=== PATIENT | female | born 1965 | race Caucasian/White ===

== ENCOUNTER 2024-05-26 10:58 | Emergency (ER) | payer BC, SELFPAY ==
[2024-05-26 11:04] VITALS: BP 145/87
[2024-05-26 11:41] LABS: % Basophils 0.4 % (0-2); % Immature Granulocytes 0.2 % (0-0.5); % Lymphocytes 28.6 % (20.5-51.1); % Monocytes 7.9 % (1.7-9.3); % Neutrophils 61.9 % (42.2-75.2); Absolute Eosinophils 0.1 10^3/uL (0-0.7); Absolute Lymphocytes 2.8 10^3/uL (1.2-3.4); Absolute Monocytes 0.8 10^3/uL (0.1-0.6); Hematocrit 44.2 % (37.0-47.0); Mean Corp Hgb Conc. 33.9 g/dL (33.0-37.0); Mean Corpuscular Hgb 29.1 pg (27.0-31.0); Mean Corpuscular Volume 85.7 fL (81.0-99.0); Mean Platelet Volume 9.8 fL (7.4-10.4); Nucleated Red Blood Cells % 0 %; Platelet Count 299 10^3/uL (130-400); Red Blood Cell Count 5.16 10^6/uL (4.20-5.40); White Blood Cell Count 9.7 10^3/uL (4.8-10.8)
[2024-05-26 11:50] LABS: Urine Albumin Negative (Neg - Trace); Urine Bilirubin Negative (Negative); Urine Character Clear (Clear); Urine Color Yellow; Urine Glucose Negative (Negative); Urine Ketone Negative (Negative); Urine Leukocyte Negative (Negative); Urine Nitrite Negative (Negative); Urine Occult Blood Negative (Negative); Urine Urobilinogen Negative (Neg - 1+); Urine pH 6.5 (5.0-9.0)
[2024-05-26 11:51] LABS: ALT (SGPT) 25 U/L (0-35); AST (SGOT) 22 U/L (14-36); Albumin 4.9 g/dl (3.5-5.0); Alkaline Phosphatase 123 U/L (38-126); Blood Urea Nitrogen 9 mg/dl (7-17); Calcium 9.5 mg/dl (8.4-10.2); Carbon Dioxide 25 mmol/L (22-30); Chloride 104 mmol/L (98-107); Glucose 94 mg/dl (70-99); Potassium 4.3 mmol/L (3.5-5.1); Sodium 138 mmol/L (135-145); Total Bilirubin 1.1 mg/dl (0.2-1.3); Total Protein 7.7 g/dl (6.3-8.2); eGFR > 60.00
--- NOTE | 2024-05-26 13:07 | ED.GENMED ---
History of Present Illness
General
Chief Complaint: Back Pain
Source: patient
Exam Limitations: none
Time Seen by Provider: 05/26/24 11:53
Nursing documentation reviewed up to this point in time: agreed with
History of Present Illness
History of Present Illness:
pt is a 58 y/o F with h/o moderate persistent asthma
managed by pulmonary dr. linda dahl
here with wheezing, cough and fever x 2 days
pt is on biologic for crohns and asthma
the crohns is new diagnosis
pt had flu A positive at on 05/09
on 05/14 she had CXR showing pna (it was done at but i can see it int he system)
she started doxycycline, steroids, nebs
she says she had reaction to the doxy and had diarrhea and nausea
her idea worker d/c'd the doxy and switched to clarithromycin on 05/17 and she took 7 days of that
other than fatigue, pt wa doing well until 2 day ago when she got a new fever t max 100.5, more coughing, more wheezing/spastic cough
she called her idea worker who told her to come here
she has not had any diarrhea the past 2 days, chest pain
she does feel sob
she has never been intubated or on bipap for asthma
Past History
Past History
ED Past Medical History: Asthma, GERD and Other (crohn's, Intersitital cystitis)
Social History
Tobacco: Non-smoker
Alcohol: None
Review of Systems
Review of Systems
Allergies reviewed?: Yes
All Other Systems: Not applicable
Phy Exam
Physical Exam
Physical Exam:
GENERAL: Alert , in no apparent distress
EYE: pupils equal and reactive
NECK: Supple
ENT: o/p clr, mmm.
CARDIAC: Regular rate and rhythm .
LUNGS: Very spastic wheezing sounding cough, coughing frequently, moving decent air, no obvious rales
ABDOMEN: Soft, without focal tenderness, no r/g, no cvat, normal bowel sounds
Back nontender, no rash
NEUROLOGICAL: Alert and oriented, no focal neuro deficits
SKIN: Warm and dry, skin intact.
MUSCULOSKELETAL: No edema, well perfused. neg jocelyne's sign
PSYCH: Normal and appropriate interaction.
Course
Orders/Labs/Results
Orders:
Orders
05/26/24 11:16
Electrocardiogram (*1) Urgent
Reason for Study: Chest Pain
EKG- Treatment ONCE
05/26/24 11:31
Complete Blood Count/With Diff Urgent
Comprehensive Metabolic Panel Urgent
Urinalysis Reflex To Culture Urgent
Date Specimen was Collected: 05/26/24
Time Specimen was Collected: 11:16
05/26/24 12:39
Ipratropium/Albuterol Sulfate [Duoneb] 3 ml INH R NOW STA
MethylPREDNISolone PF [Solu-Medrol Pf] 125 mg IV NOW STA
05/26/24 13:40
Ipratropium/Albuterol Sulfate [Duoneb] 3 ml INH R NOW STA
05/26/24 13:46
COVID-19 Antigen Urgent
Source: Nasal Swab
Influenza A+B Rapid Molecular Urgent
ANASTASIA Source: Nasal Swab
Specimen Description:
05/26/24 14:00
D-Dimer Urgent
05/26/24 14:44
CT Chest PE Study Urgent
Comment:
Reason For Exam: eval for pe, new fever, cough, asthma
05/26/24 15:12
Acetaminophen [Tylenol] 1,000 mg PO NOW STA
05/26/24 16:25
Troponin I Urgent
Abnormal Lab Results
05/26/24 05/26/24
11:31 14:00
Absolute Monos (auto) 0.8 H 10^3/uL
(0.1-0.6)
D-Dimer 0.94 H ug/mlFEU
(0.00-0.50)
05/26/24 11:31
05/26/24 11:31
Vital Signs
Initial and Last Documented VS:
Initial Vital Signs
Temp Pulse Resp BP Pulse Ox
36.8 C 101 24 145/87 96
05/26/24 11:04 05/26/24 11:04 05/26/24 11:04 05/26/24 11:04 05/26/24 11:04
Last Documented Vital Signs
Temp Pulse Resp BP Pulse Ox
36.8 C 115 24 149/90 96
05/26/24 11:04 05/26/24 15:15 05/26/24 15:15 05/26/24 15:00 05/26/24 16:00
MDM/Problems Addressed
Differential Diagnosis Includes:
Asthma, asthmatic bronchitis, PE
MDM/Problems Addressed:
58-year-old female with a history of bilateral persistent asthma on a biologic, Crohn's disease, thus immunocompromised presents for worsening cough, wheezing, fevers the past 2 days. Patient was flu a +12 days ago. She ended up being covered with
antibiotics after suspicious chest x-ray may have shown pneumonia though the radiology report was negative. Patient took Doxy first and then was switched to clarithromycin by her idea worker. She completed the course as well as a course of
steroids, 40 for 2 days, 30 for 2 days etc. and says she was feeling okay except her energy level was not totally back to normal when she started getting a new cough, wheezing and fevers with Tmax of 100.5. Patient has also had some left-sided back
discomfort which is coming and going without radiation. Initially to me she denied chest pain but in triage said she had right-sided chest pain and increased fatigue over the last 2 days. On exam she was having conversational dyspnea with very
frequent coughing. Patient could not take a deep breath without having a spastic cough. She otherwise was moving decent air and not having any focal rales. Patient seems significantly improved after 2 DuoNeb's where she was moving much more air
and was not frequently coughing. Patient's pulse ox remained normal 96%. She is mildly tachycardic which she says she has a history of and that is why she takes verapamil. However I did a D-dimer which was elevated at that she had a CT PE study.
I went over the findings with the patient which are mostly incidental. She has a lingular area of atelectasis versus scarring, thyroid nodule that needs follow-up, and coronary artery calcifications. Her EKG is normal sinus rhythm with nonspecific
ST abnormality with some scooping of her ST segment. Initially I did not believe she was having any chest discomfort but after reviewing the chart and the triage note and talking over with the patient she says she did have some chest pain. So I
will order a troponin especially since she has coronary artery calcifications on CT. Her wheezing significantly improved and I believe she can be discharged. I reached out to her idea worker Dr. Mckeon but have not heard a call back. I will plan
on a longer taper of steroids
i did speak with dr. mckeon who liked the discharge plan of pred taper.
trop neg
d/c home
*Critical Care Note
Total Time (30-74mins, 75-104mins- exclusive of procedures): Not Applicable
ED Attending Note
-
Portions of this chart may have been created with voice recognition software.� Occasional wrong word or��sound alike� substitutions may have occurred due to the inherent limitations of voice recognition software.
Discharge Plan
Departure
Patient Disposition: Home (Routine Discharge)
Date of Disposition: 05/26/24
Time of Disposition: 17:13
Patient with high blood pressure during this ER visit?: Yes
Discharge Problem:
Asthmatic bronchitis
Instructions: Bronchitis in adults - ED discharge instructions, Asthma in adults - ED discharge instructions
Prescriptions:
New
prednisone 10 mg Tablet
See Rx Instructions .ROUTE .COMPLEX Qty: 30 0RF
Rx Instructions:
Take By Mouth:
40 mg daily x3 days, 30 mg daily x3 days,
20 mg daily x3 days, 10 mg daily x3 days.
Referrals:
Scott Monet MD [Family Provider] - Follow up in 2-3 days
Activity Restrictions/Additional Instructions:
I attempted to reach out to Dr. Mckeon regarding treatment plan for you. For now try prednisone once a day tapering yourself down from 40 mg X 3 DAYS THEN 30 MG X 3 DAYS THEN 20 MG X 3 DAYS, THEN 10 MG X 3 DAYS.
Continue your neb treatments as planned. Take Tylenol for fevers and pain. You should follow-up with a supervisor cytogenetic laboratory regarding your incidental finding of your coronary artery calcifications. You should also follow-up with your family doctor
regarding your thyroid nodule that was also noticed on CT scan. Return for worsening symptoms like shortness of breath, low oxygen level, significant wheezing not responding to your nebulizer treatments or any concern
Interventions
Interventions:
*Risk Screen - Suicide Last Done: 05/26/24 11:06
*General Assessment Last Done: 05/26/24 11:06
*Neglect/Abuse Screening Last Done: 05/26/24 11:06
ED- Fall Risk Assessment Last Done: 05/26/24 15:19
*ED COVID-19 Vaccine History Last Done: 05/26/24 11:06
*Nursing Disposition Last Done: 05/26/24 17:20
ED-Musculoskeletal Assessment Last Done: 05/26/24 14:24
Discharge Date and Time
Discharge Date/Time: 05/26/24 17:20
Print Language: GABONESE
[2024-05-26] MEDS: DUONEB 3 ML INH ×2 (13:32→14:18)
[2024-05-26] MEDS: SOLU-MEDROL PF 125 MG IV (14:11)
[2024-05-26 14:21] LABS: COVID-19 Antigen Negative (Negative)
[2024-05-26 14:22] VITALS: BMI 37.3
[2024-05-26 14:35] LABS: D-Dimer 0.94 ug/mlFEU (0.00-0.50)
[2024-05-26 15:00] VITALS: BP 149/90
[2024-05-26] MEDS: TYLENOL 1000 MG PO (15:14)
[2024-05-26 17:02] LABS: Troponin I < 0.012 ng/ml
== END 2024-05-26 17:20 | disposition home or self-care (01) ==
LOC: EMR 10:58
PROVIDERS: Emergency Medicine; Physician Assistant; EMERGENCY PHYSICIAN Emergency Medicine; FAMILY PHYSICIAN Family Medicine
DX: J45.40 Moderate persistent asthma, uncomplicated (principal); K21.9 Gastro-esophageal reflux disease without esophagitis; E04.1 Nontoxic single thyroid nodule; K50.90 Crohn's disease, unspecified, without complications; Z11.52 Encounter for screening for COVID-19; I25.10 Atherosclerotic heart disease of native coronary artery without angina pectoris
CPT/HCPCS: 94640; 96374; 99284; 71275; 80053; 81003; 84484; 85025; 85379; 87502; 87811; 93005; Q9967

== ENCOUNTER → 2024-07-21 09:57 | Outpatient (REF) | payer BC, SELFPAY | LOC: WDC 09:57 | PROVIDERS: ATTENDING PHYSICIAN Family Medicine | DX: R92.8 Other abnormal and inconclusive findings on diagnostic imaging of breast (principal) | CPT/HCPCS: 76642; 77061; 77065 ==

== ENCOUNTER → 2025-01-18 09:00 | Outpatient (REF) | payer BC, SELFPAY | LOC: WDC 09:00 | PROVIDERS: ATTENDING PHYSICIAN Family Medicine; REFERRING PHYSICIAN Internal Medicine Pulmonary Disease | DX: N60.01 Solitary cyst of right breast (principal); R92.8 Other abnormal and inconclusive findings on diagnostic imaging of breast | CPT/HCPCS: 76642; 77061; 77065 ==

== ENCOUNTER 2025-02-09 14:22 | Inpatient (IN) | payer BC, SELFPAY ==
[2025-02-09] VITALS (9 sets, daily range): BP systolic 100–148; BP diastolic 46–103; BMI 38.3; BMI 37.4
[2025-02-09] MEDS: TESSALON PERLES 200 MG PO (11:03)
[2025-02-09] MEDS: NSS 500 IV (11:05)
[2025-02-09] MEDS: PROTONIX IV 40 MG IV (11:05)
[2025-02-09] MEDS: DECADRON 6 MG IV (11:07)
[2025-02-09] MEDS: DUONEB 3 ML INH ×3 (11:08→19:25)
--- NOTE | 2025-02-09 11:17 | ED.GENMED ---
History of Present Illness
General
Chief Complaint: Breathing Problem
Source: patient
Exam Limitations: none
Time Seen by Provider: 02/09/25 10:32
Nursing documentation reviewed up to this point in time: agreed with
History of Present Illness
History of Present Illness:
Patient with history of asthma, presents to ED secondary to 2-week history of persistent cough, shortness of breath, along with decreased appetite. Patient has been evaluated by her space control agent and has been started on tapered dose of prednisone
along with cough medication, without improvement symptoms. Denies fever or chills. Denies chest pain. Denies vomiting or diarrhea. Denies headache. Denies dizziness. Denies rash. Denies recent travel or surgery. Denies leg pain or swelling.
Denies sick contact. Patient has been utilizing nebulizer treatment at home, along with Pulmicort, without improvement.
Past History
Past History
ED Past Medical History: Asthma, GERD and Other (crohn's, Intersitital cystitis)
Social History
Tobacco: Non-smoker
Alcohol: None
Review of Systems
Review of Systems
Allergies reviewed?: Yes
All Other Systems: ROS reviewed and negative except as documented in HPI and ROS
Constitutional: Reports no symptoms; Denies fever
Respiratory: Reports cough and trouble breathing
Cardiac: Reports no symptoms
ABD/GI: Reports no symptoms; Denies vomiting or diarrhea
Musculoskeletal: Reports no symptoms
Skin: Reports no symptoms
Neurological: Reports no symptoms
Phy Exam
Physical Exam
Physical Exam:
Physical Exam
General: moderate respiratory distress, not acutely ill. afebrile
Head: nc/at. eomi
Neck: supple. normal range of motion
Heart: s1/s2 regular rate and rhythm
Lungs: moderate respiratory distress. diminished breath sounds bilaterally
Abdomen: normal bowel sounds. not tender.
Neuro: alert and oriented x 3. no focal neurological deficits
Skin: no rash
Psychiatric: well kept. interactive and cooperative
Extremities: no edema. no calf tenderness.
Scores
Heart Failure Risk
Heart Failure Risk Score: Not Applicable
Course
Orders/Labs/Results
Orders:
Orders
02/09/25 10:40
0.9% Sodium Chloride 500 ml [Nss] 500 ml IV BOLUS
Benzonatate [Tessalon Perles] 200 mg PO NOW STA
Dexamethasone Sod Phosphate [Decadron] 6 mg IV NOW STA
Ipratropium/Albuterol Sulfate [Duoneb] 3 ml INH R NOW ONE
CR Chest - 2 Views Urgent
Comment:
Reason For Exam: cough/sob
02/09/25 10:41
Pantoprazole [Protonix IV] 40 mg IV NOW STA
02/09/25 11:09
Comprehensive Metabolic Panel Urgent
D-Dimer Urgent
Magnesium Urgent
02/09/25 11:10
COVID-19 Antigen Urgent
Source: Nasal Swab
Complete Blood Count/With Diff Urgent
Respiratory Syncytial Virus Urgent
ANASTASIA Source: Nasal Swab
Specimen Description:
Date Specimen was Collected: 02/09/25
Time Specimen was Collected: 10:41
02/09/25 12:57
Azithromycin 500 mg/250 ml [Zithromax Infusion] 500 mg in 250 ml IV NOW
02/09/25 13:44
Admit/Transfer Patient As Directed
Co-Sign Provider:
Level of Care: Inpatient admission
Assign to:: Telemetry
Physician / Group: ab
Diagnosis: acute asthma exacerbation
Reason for Telemetry: Arrhythmia
Date to Stop Telemetry: 02/12/25
Time to Stop Telemetry: 11:00
Reason for Hospitalization: acute asthma exacerbation
Expected length of stay greater than two midnights?: Yes
ELOS- Estimated Length of Stay in days: 2
I certify the patient meets the requirements for IP care: Yes
Code Status As Directed
Resuscitation Status: Full Code
PRN Pain Medication Management As Directed
May give lesser potent ordered pain med per pt: Yes
preference::
Protocol:: Medication orders for pain may be administered in a
manner that supports deferring to patient preference
when the pt is:
- Requesting an ordered lesser potent pain medication.
Least to most potent pain medications are defined
as: acetaminophen < NSAID < tramadol < opioids
(morphine, oxycodone, hydromorphone).
- Requesting a lesser dose of the same medication IF
ORDERED.
- Requesting a less intrusive route of administration
if both routes are prescribed by the provider (PO <
IV).
02/12/25 11:00
DC Protocol for Telemetry ONCE
Abnormal Lab Results
02/09/25 02/09/25
11:09 11:10
WBC 12.5 H 10^3/uL
(4.8-10.8)
Abs Immat Gran (auto) 0.1 H 10^3/uL
(0-0.05)
Absolute Neuts (auto) 7.3 H 10^3/uL
(1.4-6.5)
Absolute Lymphs (auto) 4.0 H 10^3/uL
(1.2-3.4)
Absolute Monos (auto) 1.0 H 10^3/uL
(0.1-0.6)
Immature Gran % 1.0 H %
(0-0.5)
D-Dimer 0.87 H ug/mlFEU
(0.00-0.50)
ALT 68 H U/L
(0-35)
02/09/25 11:10
02/09/25 11:09
Vital Signs
Initial and Last Documented VS:
Initial Vital Signs
Temp Pulse Resp BP Pulse Ox
98.3 F 95 18 148/91 97
02/09/25 09:48 02/09/25 09:48 02/09/25 09:48 02/09/25 09:48 02/09/25 09:48
Last Documented Vital Signs
Temp Pulse Resp BP Pulse Ox
98.3 F 91 21 100/62 94
02/09/25 09:48 02/09/25 14:30 02/09/25 14:30 02/09/25 13:00 02/09/25 14:30
MDM/Problems Addressed
MDM/Problems Addressed:
Chest x-ray report reviewed.
History and exam consistent with likely acute bronchitis, failing outpatient therapy. As such, patient will be admitted for further evaluation and treatment, including continue nebulizer treatment, IV steroids, along with Zithromax
*Pulse Oximetry
SaO2: 97
Oxygen Mode of Delivery: Room air
Patient hypoxic: no
*Critical Care Note
Total Time (30-74mins, 75-104mins- exclusive of procedures): Not Applicable
ED Attending Note
-
Portions of this chart may have been created with voice recognition software.� Occasional wrong word or��sound alike� substitutions may have occurred due to the inherent limitations of voice recognition software.
Discharge Plan
Departure
Patient Disposition: Admit
Date of Disposition: 02/09/25
Time of Disposition: 12:58
Admit to: Telemetry
Presentation/result/management discussed w/ accepting MD/DO: Hospitalist
Discharge Problem:
Acute bronchitis, Respiratory distress
Interventions
Interventions:
*Risk Screen - Suicide Last Done: 02/09/25 09:48
*General Assessment Last Done: 02/09/25 09:48
*Neglect/Abuse Screening Last Done: 02/09/25 10:50
*ED- Fall Risk Assessment Last Done: 02/09/25 10:50
*ED COVID-19 Vaccine History Last Done: 02/09/25 10:50
*ED Influenza Vaccine History Last Done: 02/09/25 10:50
ED- Cardiac Assessment Last Done: 02/09/25 14:35
ED- Pulmonary Assessment Last Done: 02/09/25 14:35
[2025-02-09 11:28] LABS: Hematocrit 42.3 % (37.0-47.0); Hemoglobin 14.6 g/dL (12.0-16.0); Mean Corp Hgb Conc. 34.5 g/dL (33.0-37.0); Mean Corpuscular Volume 85.3 fL (81.0-99.0); Nucleated Red Blood Cells % 0 %; Platelet Count 312 10^3/uL (130-400); Red Cell Dist. Width 12.8 % (11.5-14.5)
[2025-02-09 11:44] LABS: ALT (SGPT) 68 U/L (0-35); AST (SGOT) 27 U/L (14-36); Albumin 4.4 g/dl (3.5-5.0); Alkaline Phosphatase 104 U/L (38-126); Blood Urea Nitrogen 12 mg/dl (7-17); Calcium 9.6 mg/dl (8.4-10.2); Carbon Dioxide 28 mmol/L (22-30); Chloride 103 mmol/L (98-107); Estimated Creatinine Clearance 94 ml/min; Glucose 98 mg/dl (70-99); Magnesium 2.1 mg/dl (1.6-2.3); Potassium 4.2 mmol/L (3.5-5.1); Sodium 139 mmol/L (135-145); Total Protein 7.0 g/dl (6.3-8.2); eGFR > 60.00
[2025-02-09 11:48] LABS: COVID-19 Antigen Negative (Negative)
[2025-02-09 12:03] LABS: D-Dimer 0.87 ug/mlFEU (0.00-0.50)
[2025-02-09] MEDS: ZITHROMAX INFUSION 250 IV (13:35)
--- NOTE | 2025-02-09 13:47 | HPS.HSE ---
Family Physician
-
Family Physician: Scott Monet MD
Chief Complaint
-
shortness of breath
History of Present Illness
59-year-old female past medical history of moderate to severe asthma, tachycardia from chronic steroid use, GERD, Crohn's disease, GERD/hiatal hernia, interstitial cystitis, presenting with 2 weeks of persistent cough, shortness of breath, sore
throat, and decreased appetite. She saw her grain thresher and was started on prednisone taper twice without improvement of symptoms. She tested herself for COVID and flu and was negative at home but was also treated empirically with Tamiflu by her
grain thresher which she completed. She had dry heaving last week but this is improved. Denies vomiting or diarrhea. She has burning in the chest from difficulty breathing. Denies fevers or chills. Denies sick contacts.
Denies leg swelling.
She never smoked. Denies alcohol.
Medical History
Past Medical History
Past Medical History: Reports Other (asthma, tachycardia from chronic steroid use, GERD, Crohn's disease, GERD/hiatal hernia, interstitial cystitis,)
Past Surgical History: Reports None
Social History
Tobacco: Non-smoker
Alcohol: None
Drug: None
Family History
Family History: Not pertinent
Allergies / Home Medications
Allergies reflects when Allergies were last updated in [facility].
Home Medications with original date entered in [facility]
Allergy/Medication List:
Allergies
Allergy/AdvReac Type Severity Reaction Status Date / Time
doxylamine Allergy Intermediate Nausea / Verified 02/09/25 09:49
Vomiting
lorazepam (From Ativan) Allergy Intermediate Unknown Verified 02/09/25 09:49
adhesive tape Allergy Rash Verified 02/09/25 09:49
codeine Allergy Unknown Verified 02/09/25 09:49
doxycycline Allergy Unknown Verified 02/09/25 09:49
Latex, Natural Rubber Allergy Unknown Verified 02/09/25 09:49
Penicillins Allergy Unknown Verified 02/09/25 09:49
'most narcotics' Allergy Unknown Uncoded 02/09/25 09:49
Home Medications
prednisone 10 mg tablet See Rx Instructions .Route .COMPLEX #30 tabs 05/26/24
albuterol sulfate 90 mcg/actuation aerosol inhaler 2 puff inhalation R Q6HPRN PRN sob 02/09/25
budesonide 0.5 mg/2 mL suspension for nebulization 0.5 mg inhalation R TID sob 02/09/25
cholecalciferol (vitamin D3) 25 mcg (1,000 unit) tablet (Vitamin D3) 25 mcg PO DAILY Supplement 02/09/25
famotidine 20 mg tablet (Pepcid) 20 mg PO BID Gastrointestinal Issue 02/09/25
fluticasone fur. 200 mcg-umeclid 62.5 mcg-vilant 25 mcg inhalat.powder (Trelegy Ellipta) 1 inh inhalation R DAILY sob 02/09/25
rosuvastatin 10 mg tablet (Crestor) 10 mg PO DAILY High Cholesterol 02/09/25
therapeutic multivitamin 1 tab PO DAILY Supplement 02/09/25
turmeric 400 mg capsule 400 mg PO DAILY Supplement 02/09/25
verapamil 180 mg tablet,extended release 180 mg PO DAILY Blood Pressure 02/09/25
Review of Systems
-
History Source: Patient
A 12 point ROS was completed and negative except as noted: Yes
Constitutional: Reports No Symptoms
EENT: Reports No Symptoms
Respiratory: Reports See HPI
Cardiac: Reports No Symptoms
Abdomen/GI: Reports No Symptoms
: Reports No Symptoms
Musculoskeletal: Reports No Symptoms
Skin: Reports No Symptoms
Neurological: Reports No Symptoms
Endocrine: Reports No Symptoms
Hematologic/Lymphatic: Reports No Symptoms
Psych: Reports No Symptoms
Physical Exam
Vital Signs
Vital Signs
Temp Pulse Resp BP Pulse Ox
98.3 F 95 15 148/91 97
02/09/25 09:48 02/09/25 12:00 02/09/25 12:00 02/09/25 09:48 02/09/25 12:00
Physical Exam
General: Well Developed, Well Nourished and No Apparent Distress
HEENT: NormoCephalic, Moist mucous membranes and Atraumatic
Respiratory: Other (decrease air entry )
Cardiac: S1/S2 and Regular Rhythm; No Murmur or Rub
GI: Soft, Non Tender, Non Distended and Normal Bowel Sounds; No Organomegaly
Rectal: Deferred by Provider
Musculoskeletal: No Clubbing, No Cyanosis and No Edema
Skin: No Rash
Neuro: Nonfocal/grossly intact
Laboratory Results
-
02/09/25 11:10
02/09/25 11:09
Laboratory Results
Total Bilirubin 0.6 mg/dl (0.2-1.3) 02/09/25 11:09
AST 27 U/L (14-36) 02/09/25 11:09
ALT 68 U/L (0-35) H 02/09/25 11:09
Alkaline Phosphatase 104 U/L (38-126) 02/09/25 11:09
Data Reviewed
-
Lab Data: Labs Reviewed by me
Old Records: Reviewed
Impression/Plan
-
IMPRESSION:
PLAN:
# Acute asthma exacerbation secondary to URI
-Was on prednisone taper, completed Tamiflu empirically
-D-dimer of 0.87 but has previously been 0.94 when she came in for similar symptoms, and clinically doubt pulmonary embolism
-COVID, flu, RSV negative
-Chest x-ray shows no acute cardiopulmonary abnormality
-Leukocytosis secondary to steroid
- DuoNebs
-Dexamethasone 4 mg Q8
-Continue budesonide
- Benzonatate
- IV fluids given
- Azithromycin
History of moderate to severe asthma
- Continue budesonide, albuterol, Trelegy Ellipta
- On biologic infusion
Tachycardia from chronic steroid
- Continue verapamil
GERD/hiatal hernia
- Continue famotidine
Crohn's disease
Interstitial cystitis
Hypercholesterolemia
Full code
DVT prophylaxis�heparin
Regular diet
[2025-02-09] MEDS: BENADRYL 50 MG IV (16:25)
[2025-02-09] MEDS: DUONEB INH (17:30)
[2025-02-09] MEDS: PULMICORT INH (17:30)
[2025-02-09] MEDS: PULMICORT 0.5 MG INH (19:25)
[2025-02-09] MEDS: SYMBICORT 160/4.5 MCG INHALER INH (19:29)
[2025-02-09] MEDS: SYMBICORT 160/4.5 MCG INHALER 2 PUFF INH (19:45)
[2025-02-09] MEDS: PEPCID 20 MG PO (20:53)
[2025-02-09] MEDS: DECADRON 4 MG IV (20:53)
[2025-02-09] MEDS: HEPARIN 5000 UNITS SC (20:54)
[2025-02-10 03:00] VITALS: BP 133/73
[2025-02-10] MEDS: DECADRON 4 MG IV ×3 (03:23→20:21)
--- NOTE | 2025-02-10 07:10 | W.PN.HOSP.TC ---
Today's Communication/Plan
-
See plan
Monitor on telemetry
Assessment / Plan
Assessment / Plan
Physical Exam
General: Well Developed, Well Nourished and No Apparent Distress
HEENT: NormoCephalic, Moist mucous membranes and Atraumatic
Respiratory: Other (decrease air entry )
Cardiac: S1/S2 and Regular Rhythm; No Murmur or Rub
GI: Soft, Non Tender, Non Distended and Normal Bowel Sounds
Musculoskeletal: No Cyanosis and No Edema
Skin: Warm. Dry.
Neuro: Nonfocal/grossly intact
Assessment/Plan
59-year-old female past medical history of moderate to severe asthma, tachycardia from chronic steroid use, GERD, Crohn's disease, GERD/hiatal hernia, interstitial cystitis, presenting with 2 weeks of persistent cough, shortness of breath, sore
throat, and decreased appetite. She saw her industrial green systems designer and was started on prednisone taper twice without improvement of symptoms. She tested herself for COVID and flu and was negative at home but was also treated empirically with Tamiflu by her
industrial green systems designer which she completed. She had dry heaving last week but this is improved. Denies vomiting or diarrhea. She has burning in the chest from difficulty breathing. Denies fevers or chills. Denies sick contacts. Denies leg swelling. She
never smoked. Denies alcohol.
# Acute asthma exacerbation secondary to URI
-Was on prednisone taper, completed Tamiflu empirically
-D-dimer of 0.87 but has previously been 0.94 when she came in for similar symptoms, and clinically doubt pulmonary embolism
-COVID, flu, RSV negative
-Chest x-ray shows no acute cardiopulmonary abnormality
-Leukocytosis secondary to steroid
- DuoNebs
-Dexamethasone 4 mg Q8
-Continue budesonide
- Benzonatate
- IV fluids given
- Azithromycin
History of moderate to severe asthma
- Continue budesonide, albuterol, Trelegy Ellipta
- On biologic infusion
Tachycardia from chronic steroid
- Continue verapamil
GERD/hiatal hernia
- Continue famotidine
Crohn's disease
Interstitial cystitis
Hypercholesterolemia
Full code
DVT prophylaxis�heparin
Regular diet
Anticipated Discharge: > 48 hours
Subjective/Interval History
-
Date of Service: February 10, 2025
Patient was seen and examined. She was still quite short of breath.
Objective Data
-
Labs:
Laboratory Results
02/10/25
06:50
WBC Pending
Hgb Pending
Hct Pending
Plt Count Pending
Sodium Pending
Potassium Pending
Chloride Pending
Carbon Dioxide Pending
BUN Pending
Creatinine Pending
Glucose Pending
Calcium Pending
Total Bilirubin Pending
AST Pending
ALT Pending
Alkaline Phosphatase Pending
Vital Signs:
Vital Signs
Temp Pulse Resp BP Pulse Ox
98 F 90 18 133/73 94
02/10/25 03:00 02/10/25 03:00 02/10/25 03:00 02/10/25 03:00 02/10/25 03:00
I&O
02/09/25 02/10/25 02/11/25
06:59 06:59 06:59
Intake Total 480 / 480
Balance 480 / 480
[2025-02-10 07:28] LABS: Hematocrit 41.1 % (37.0-47.0); Hemoglobin 14.5 g/dL (12.0-16.0); Mean Corp Hgb Conc. 35.3 g/dL (33.0-37.0); Mean Corpuscular Volume 86.9 fL (81.0-99.0); Nucleated Red Blood Cells % 0 %; Platelet Count 316 10^3/uL (130-400); Red Cell Dist. Width 12.6 % (11.5-14.5)
[2025-02-10 07:57] LABS: AST (SGOT) 22 U/L (14-36); Albumin 4.3 g/dl (3.5-5.0); Alkaline Phosphatase 92 U/L (38-126); Blood Urea Nitrogen 15 mg/dl (7-17); Calcium 9.7 mg/dl (8.4-10.2); Carbon Dioxide 22 mmol/L (22-30); Chloride 104 mmol/L (98-107); Estimated Creatinine Clearance 108 ml/min; Glucose 253 mg/dl (70-99); Potassium 4.4 mmol/L (3.5-5.1); Sodium 138 mmol/L (135-145); Total Protein 6.8 g/dl (6.3-8.2); eGFR > 60.00
[2025-02-10] MEDS: PULMICORT 0.5 MG INH ×2 (08:02→19:21)
[2025-02-10] MEDS: DUONEB 3 ML INH ×4 (08:02→19:21)
[2025-02-10] MEDS: SYMBICORT 160/4.5 MCG INHALER 2 PUFF INH ×2 (08:02→19:22)
[2025-02-10 08:03] VITALS: BP 143/80
[2025-02-10] MEDS: SPIRIVA RESPIMAT 2.5 MCG 2 PUFF INH (08:06)
[2025-02-10 08:07] LABS: ALT (SGPT) 55 U/L (0-35)
[2025-02-10] MEDS: CALAN EXTENDED RELEASE 180 MG PO (08:25)
[2025-02-10] MEDS: HEPARIN 5000 UNITS SC ×2 (08:25→20:21)
[2025-02-10] MEDS: PEPCID 20 MG PO ×2 (08:25→20:21)
[2025-02-10] MEDS: CRESTOR 10 MG PO (08:25)
[2025-02-10] MEDS: VITAMIN D3 (cholecalciferol) 25 MCG PO (08:25)
[2025-02-10] MEDS: THERAGRAN 1 TABLET PO (08:25)
[2025-02-10 10:58] VITALS: BP 115/64
--- NOTE | 2025-02-10 11:17 | CON.PUL ---
Consultation
Consultation Request
Date/Time Consultation Requested: 02/10/2025
Date/Time Consultation Performed: 02/11/2024
Requesting Provider: Dr. Martinez
Performing Provider: Dr. Alli Chan
Reason for Consultation: Acute asthma exacerbation
Medical History
-
Chief Complaint: Shortness of breath
History of Present Illness:
59-year-old woman with past medical history significant for severe asthma, chronic steroid use, GERD, Crohn's disease, GERD/hiatal hernia, interstitial cystitis, presented to the hospital with 2-week history of persistent cough, shortness of breath,
sore throat and decreased appetite.
In the outpatient setting she was started on prednisone by pulmonary without significant improvement.
COVID and flu negative in the outpatient setting.
Empirically was given Tamiflu.
She completed that.
-
She denies swallowing problems, GERD, nausea or vomiting.
Denies diarrhea.
She reports progressive difficulty breathing with chest tightness.
She is a never smoker.
-
Further questioning: Patient follows with Dr. Cueva from allergy and asthma.
She is on Tezpire
She used to be on Xolair up until May 2024
She tried Singulair for quite some time and discontinued recently due to back box warning
She was referred to pulmonary at [place] for lung nodules-repeat CAT scan is upcoming Friday.
-
She denies any GERD
Denies significant symptoms suggestive of obstructive sleep apnea
-
She recently about 2 weeks ago came from the [facility] where she had a retreat.
Since then her symptoms have been present despite maximal medical therapy.
-
She also recently developed shortness of breath for the last several months-she has seen a post doc fellowship.
CT angiogram was performed several months ago and was negative for pulmonary embolism.
Past Medical History
Past Medical History: Other (See assessment and plan)
Social History
Tobacco: Non-smoker
Alcohol: None
Drug: None
Family History
Family History: Reviewed & Not Pertinent
Allergies / Home Medications
Allergies
Allergy/AdvReac Type Severity Reaction Status Date / Time
adhesive tape Allergy Rash Verified 02/09/25 09:49
azithromycin Allergy Itching Verified 02/09/25 20:14
codeine Allergy Unknown Verified 02/09/25 09:49
doxycycline Allergy Unknown Verified 02/09/25 09:49
doxylamine Allergy Nausea / Verified 02/09/25 17:17
Vomiting
Latex, Natural Rubber Allergy Unknown Verified 02/09/25 09:49
lorazepam (From Ativan) Allergy pt. Verified 02/09/25 17:17
reports
disorentation
Penicillins Allergy Unknown Verified 02/09/25 09:49
'most narcotics' Allergy Breathing Uncoded 02/09/25 17:17
issues
Home Medications
�Medication �Instructions �Recorded �Confirmed �Last Taken �Type
prednisone 10 mg tablet See Rx Instructions .Route 05/26/24 02/09/25 02/08/25 Rx
.COMPLEX #30 tabs 10 mg
albuterol sulfate 90 mcg/actuation 2 puff inhalation R Q6HPRN PRN sob 02/09/25 02/09/25 Unknown History
aerosol inhaler
budesonide 0.5 mg/2 mL suspension 0.5 mg inhalation R TID sob 02/09/25 02/09/25 02/09/25 History
for nebulization
cholecalciferol (vitamin D3) 25 25 mcg PO DAILY Supplement 02/09/25 02/09/25 02/09/25 History
mcg (1,000 unit) tablet (Vitamin
D3)
famotidine 20 mg tablet (Pepcid) 20 mg PO BID Gastrointestinal Issue 02/09/25 02/09/25 02/09/25 History
fluticasone fur. 200 mcg-umeclid 1 inh inhalation R DAILY sob 02/09/25 02/09/25 02/09/25 History
62.5 mcg-vilant 25 mcg
inhalat.powder (Trelegy Ellipta)
rosuvastatin 10 mg tablet (Crestor) 10 mg PO DAILY High Cholesterol 02/09/25 02/09/25 02/09/25 History
therapeutic multivitamin 1 tab PO DAILY Supplement 02/09/25 02/09/25 02/09/25 History
turmeric 400 mg capsule 400 mg PO DAILY Supplement 02/09/25 02/09/25 02/09/25 History
verapamil 180 mg tablet,extended 180 mg PO DAILY Blood Pressure 02/09/25 02/09/25 02/09/25 History
release
Review of Systems
-
History Source: Patient
All other systems: Negative unless noted
Vitals / Labs / Diagnostic Testing
Vital Signs
Temp Pulse Resp BP Pulse Ox
98.1 F 101 16 115/64 93
02/10/25 10:58 02/10/25 10:58 02/10/25 10:58 02/10/25 10:58 02/10/25 10:58
Lab Data
02/10/25 06:50
02/10/25 06:50
Microbiology
02/09/25 11:10 Nasal Swab Respiratory Syncytial Virus Ag - Final
Negative for Respiratory Syncytial Virus.
A false negative result may be obtained with a specimen
collected early in the acute phase. If symptoms persist, a
new specimen should be tested.
Diagnostic Testing:
Physical Exam
-
HEENT: Normocephalic
Cardiovascular: S1/S2
Respiratory: Wheeze and Non-Labored Respirations
GI: Soft and Non Distended
Neurology: Awake, Oriented and AO x 3
Skin: Warm
General: Comfortable
Assessment
-
59-year-old woman with past medical history noted, admitted with increased shortness of breath, chest tightness and wheezing. Treated with Tamiflu and prednisone in the outpatient setting without improvement.
Came to the hospital due to progressive shortness of breath, chest tightness and found to be bronchospastic.
Consulted on 02/10/2025 for evaluation.
Acute asthma exacerbation: Failed outpatient regimen.
Chest x-ray--reviewed, clear lungs
Covid negative
Rvs negative
Flu negative in outpx
Conditions present prior admission:
History of asthma-possibly allergic-diagnosed since childhood
Previously on Xolair until May 2024
Trelegy/ Tezpire
Frequent acute exacerbation
Does not follow up locally
Small lung nodules-being followed by Dr. Garcia at [facility]
Multiple medication allergies including doxycycline and azithromycin
Obesity
Chronic tachycardia
GERD
Current disease
Hiatal hernia
Interstitial cystitis
Never smoked
Assessment and plan:
Exacerbation trigger may have been exposure to allergens in the [place]-symptoms coincide with her returning from her trip.
She states that usually she only develops shortness of breath and coughing.
Currently not significant bronchospastic but has significant cough paroxysms.
Currently on room air
Able to speak in full sentences
Denies GERD or postnasal drip.
-
She has been followed by Dr. Cueva from allergy and immunology as well as Dr. Garcia from pulmonary at [facility].
On maximal medical therapy including biologic therapy- Tezpire.
She states that recently evaluated her shortness of breath-she saw cardiology. Workup was negative
She even underwent several months ago CT angiogram that was negative for pulmonary embolism but found small pulmonary nodules.
She is due to repeat a CAT scan to follow-up on nodules.
-
No need for imaging in the hospital
Agree with D-dimer mildly increased less likely related to pulmonary embolism clinically. Will continue to follow closely. If symptoms persist may consider obtaining CT angiogram while in the hospital.
-
Triggers in this case included: Possibly environmental/weather change versus viral infection.
Microbiology so far negative.
-
Agree with current regimen:
Continue IV dexamethasone
Ipratropium/albuterol 4 times a day
Hold inhalers while on nebulizer therapy
Pulmicort twice a day
No indication for antibiotics
Antitussives
Patient become itchy with azithromycin-hold further antibiotics for now.
-
Montelukast recently discontinued concerned with blackbox warning-anxiety/depression.
-
Patient denies any anxiety-hyperventilation syndrome diagnosis of exclusion.
-
Will follow
--- NOTE | 2025-02-10 11:35 | CM ---
CM following re: discharge planning.
Reviewed pt's chart, met with pt.
Pt is a 59 year old female, admitted with primary dx of Acute asthma exacerbation secondary to URI.
Pt reports she lives with and a son in a 2SH, has 3 supportive children. 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
PCP: Scott Monet
Pharmacy: [facility] [place]
D/C plan: home no needs. to transport at discharge.
CM will follow with discharge plan updates as hospitalization progresses
[2025-02-10 15:56] VITALS: BP 108/61
[2025-02-10 19:31] VITALS: BP 127/55
[2025-02-10] MEDS: TYLENOL 650 MG PO (20:20)
[2025-02-10] MEDS: FLUSH (NSS) 2 FLUSH IV (20:27)
[2025-02-10 23:54] VITALS: BP 124/61
[2025-02-11 03:25] VITALS: BP 132/60
[2025-02-11] MEDS: DECADRON 4 MG IV (04:24)
[2025-02-11] MEDS: FLUSH (NSS) 2 FLUSH IV ×2 (04:26→04:36)
[2025-02-11] MEDS: ZOFRAN 4 MG IV (04:35)
[2025-02-11] MEDS: TYLENOL 650 MG PO (04:55)
[2025-02-11] MEDS: SYMBICORT 160/4.5 MCG INHALER 2 PUFF INH (07:29)
[2025-02-11] MEDS: DUONEB INH ×2 (07:29→15:25)
[2025-02-11] MEDS: PULMICORT INH (07:30)
[2025-02-11] MEDS: SPIRIVA RESPIMAT 2.5 MCG 2 PUFF INH (07:32)
[2025-02-11 07:41] VITALS: BP 135/71
--- NOTE | 2025-02-11 08:11 | W.PN.HOSP.TC ---
Today's Communication/Plan
-
Discharge today
Assessment / Plan
Assessment / Plan
Physical Exam
General: Well Developed, Well Nourished and No Apparent Distress
HEENT: Normocephalic, Moist mucous membranes
Respiratory: Improved air entry bilaterally, no wheezing
Cardiac: S1/S2 and Regular Rhythm
GI: Soft, Non Tender, Non Distended and Normal Bowel Sounds
Musculoskeletal: No Cyanosis and No Edema
Skin: Warm. Dry.
Neuro: AAOx3. Nonfocal/grossly intact
Assessment/Plan
59-year-old female past medical history of moderate to severe asthma, tachycardia from chronic steroid use, GERD, Crohn's disease, GERD/hiatal hernia, interstitial cystitis, presenting with 2 weeks of persistent cough, shortness of breath, sore
throat, and decreased appetite. She saw her correspondence clerk and was started on prednisone taper twice without improvement of symptoms. She tested herself for COVID and flu and was negative at home but was also treated empirically with Tamiflu by her
correspondence clerk which she completed. She had dry heaving last week but this is improved. Denies vomiting or diarrhea. She has burning in the chest from difficulty breathing. Denies fevers or chills. Denies sick contacts. Denies leg swelling. She
never smoked. Denies alcohol.
#Acute asthma exacerbation secondary to URI, failed outpatient regimen - exacerbation trigger may have been exposure to allergens in the [place]-symptoms coincide with her returning from her trip.
#Leukocytosis secondary to steroids
-Was on prednisone taper outpatient, completed Tamiflu empirically
-D-dimer of 0.87 but has previously been 0.94 when she came in for similar symptoms, and clinically doubt pulmonary embolism
-COVID, flu, RSV negative
-Chest x-ray showed no acute cardiopulmonary abnormality
-Leukocytosis secondary to steroid
- DuoNebs
-Discussed case with inpatient pulmonary today, on discharge: Prednisone 40 mg X 3 days, 30 mg X 3 days, 20 mg X 3 days and then 10 mg X 3 days
-While recovering use Pulmicort/albuterol twice a day and hold inhalers until fully cleared
-Continue budesonide
-Benzonatate
-IV fluids were previously given
-No need for antibiotics
-Follow-up with Dr. Cueva in the next 2 weeks after discharge
Small lung nodules-being followed by Dr. Garcia at [facility]
Multiple medication allergies including doxycycline and azithromycin
History of moderate to severe asthma
- Continue budesonide, albuterol, Trelegy Ellipta
- On biologic infusion
Tachycardia from chronic steroid
- Continue verapamil
GERD/hiatal hernia
- Continue famotidine
Crohn's disease
Interstitial cystitis
Hypercholesterolemia
Chronic tachycardia
Hiatal hernia
Interstitial cystitis
Never smoked
Obesity
Full code
DVT prophylaxis�heparin
Regular diet
More than 30 minutes spent in discharge including
Final examination of the patient
Summarizing hospital stay
Instructions for continuing care to all relevant caregivers
Preparation of discharge records, prescriptions, and referral forms
Total time spent (in minutes): 40
Anticipated Discharge: Today
Subjective/Interval History
-
Date of Service: February 11, 2025
Patient was seen and examined. She feels better today, and stated that she would like to go home today.
Objective Data
-
Vital Signs:
Vital Signs
Temp Pulse Resp BP Pulse Ox
98.0 F 87 18 135/71 95
02/11/25 07:41 02/11/25 07:41 02/11/25 07:41 02/11/25 07:41 02/11/25 07:41
I&O
02/10/25 02/11/25 02/12/25
06:59 06:59 06:59
Intake Total 480 / 480 1200 / 1200
Balance 480 / 480 1200 / 1200
[2025-02-11] MEDS: VITAMIN D3 (cholecalciferol) 25 MCG PO (08:18)
[2025-02-11] MEDS: CRESTOR 10 MG PO (08:18)
[2025-02-11] MEDS: CALAN EXTENDED RELEASE 180 MG PO (08:19)
[2025-02-11] MEDS: HEPARIN 5000 UNITS SC (08:19)
[2025-02-11] MEDS: PEPCID 20 MG PO (08:19)
[2025-02-11] MEDS: THERAGRAN 1 TABLET PO (08:19)
[2025-02-11 09:28] LABS: Hematocrit 42.3 % (37.0-47.0); Hemoglobin 14.1 g/dL (12.0-16.0); Mean Corp Hgb Conc. 33.3 g/dL (33.0-37.0); Mean Corpuscular Volume 89.6 fL (81.0-99.0); Nucleated Red Blood Cells % 0 %; Platelet Count 265 10^3/uL (130-400); Red Cell Dist. Width 12.6 % (11.5-14.5)
[2025-02-11 10:24] LABS: ALT (SGPT) 51 U/L (0-35); AST (SGOT) 25 U/L (14-36); Albumin 4.2 g/dl (3.5-5.0); Alkaline Phosphatase 99 U/L (38-126); Blood Urea Nitrogen 16 mg/dl (7-17); Calcium 9.9 mg/dl (8.4-10.2); Carbon Dioxide 25 mmol/L (22-30); Chloride 102 mmol/L (98-107); Estimated Creatinine Clearance 108 ml/min; Glucose 224 mg/dl (70-99); Magnesium 2.1 mg/dl (1.6-2.3); Potassium 4.4 mmol/L (3.5-5.1); Sodium 137 mmol/L (135-145); Total Protein 6.7 g/dl (6.3-8.2); eGFR > 60.00
--- NOTE | 2025-02-11 11:05 | W.PN.PUL3 ---
Today's Communication / Plan
-
Transition to prednisone-see taper
Continue nebulizer therapy-Pulmicort/DuoNeb-upon discharge can continue Pulmicort/albuterol twice a day. Albuterol as needed
Hold inhalers while recovering
Increase physical activity as tolerated
Okay with discharge today
Sign off
Discussed with at the bedside
Follow-up with Dr. Cueva from allergy and immunology at discharge
Assessment
-
59-year-old woman with past medical history noted, admitted with increased shortness of breath, chest tightness and wheezing. Treated with Tamiflu and prednisone in the outpatient setting without improvement.
Came to the hospital due to progressive shortness of breath, chest tightness and found to be bronchospastic.
Consulted on 02/10/2025 for evaluation.
Acute asthma exacerbation: Failed outpatient regimen.
Chest x-ray--reviewed, clear lungs
Covid negative
Rvs negative
Flu negative in outpx
Conditions present prior admission:
History of asthma-possibly allergic-diagnosed since childhood
Previously on Xolair until May 2024
Trelegy/ Tezpire
Frequent acute exacerbation
Does not follow up locally
Small lung nodules-being followed by Dr. Garcia at [facility]
Multiple medication allergies including doxycycline and azithromycin
Obesity
Chronic tachycardia
GERD
Current disease
Hiatal hernia
Interstitial cystitis
Never smoked
Assessment and plan:
Exacerbation trigger may have been exposure to allergens in the [place]-symptoms coincide with her returning from her trip.
She states that usually she only develops shortness of breath and coughing.
Currently not significant bronchospastic but has significant cough paroxysms.
Currently on room air
Able to speak in full sentences
Denies GERD or postnasal drip.
-
Clinically she feels better
Other than coughing along with symptoms slowly improving.
-
Telemetry without arrhythmias
Patient does report recent cardiac evaluation that was negative.
No need for imaging in the hospital
Agree with D-dimer mildly increased less likely related to pulmonary embolism clinically.
Will continue to follow closely. If symptoms persist may consider obtaining CT angiogram while in the hospital.(Of note in the last several months she has had [address] angiograms 1 year dose done and she reports 1 somewhere else where it was negative
as well)
-
She has been followed by Dr. Cueva from allergy and immunology as well as Dr. Garcia from pulmonary at [facility].
On maximal medical therapy including biologic therapy- Tezpire.
She states that recently evaluated her shortness of breath-she saw cardiology. Workup was negative
She even underwent several months ago CT angiogram that was negative for pulmonary embolism but found small pulmonary nodules.
She is due to repeat a CAT scan to follow-up on nodules.
-
Triggers in this case included: Possibly environmental/weather change versus viral infection.
Microbiology so far negative.
-
Agree with current regimen:
Discussed with patient and in detail-she would like to go home if possible.
I agree with discharge planning
Transition to prednisone upon discharge 40 mg X 3 days, 30 mg X 3 days, 20 mg X 3 days and then 10 mg X 3 days
While recovering use Pulmicort/albuterol twice a day and hold inhalers until fully cleared
Follow-up with Dr. Cueva in the next 2 weeks after discharge
-
No indication for antibiotics
Antitussives
Patient become itchy with azithromycin-hold further antibiotics for now.
-
Montelukast recently discontinued concerned with blackbox warning-anxiety/depression.
-
Patient denies any anxiety-hyperventilation syndrome diagnosis of exclusion.
-
Obesity: Weight loss will be helpful to control asthma in the outpatient setting
2 denies any signs or symptoms suggestive of obstructive sleep apnea
She states that her acid reflux symptoms are controlled.
Denies ongoing occupational or environmental exposure
-
No additional recommendations. Okay to discharge.
Discussed with Dr. Oro 02/11/2025--discharge planning
-
Patient will continue to follow-up with Dr. Cueva and Dr. Garcia in the outpatient setting after discharge.
Subjective Data
-
Date of Service:
Date of Service: February 11, 2025
Chief Complaint: Pulmonary Follow Up (Acute asthma exacerbation/shortness of breath)
Subjective:
Continues to report intermittent coughing
Exertional shortness of breath
Denies phlegm production
Denies chest discomfort.
Review of Systems
General: Fever (n)
Cardiopulmonary: Dyspnea (n)
GI: Abdominal Pain (n)
Objective Data
Data Reviewed
Vital Signs / I&O / Oxygen:
Vital Signs
Temp Pulse Resp BP Pulse Ox
98.0 F 91 18 135/71 95
02/11/25 07:41 02/11/25 08:19 02/11/25 07:41 02/11/25 08:19 02/11/25 07:41
Intake and Output
02/10/25 02/11/25 02/12/25
06:59 06:59 06:59
Intake Total 480 / 480 1200 / 1200
Balance 480 / 480 1200 / 1200
SaO2 95
Physical Exam
General: Comfortable
HEENT: Normocephalic
Cardiovascular: S1-S2
Respiratory: Clear and Non-Labored Respirations
GI: Soft and Non Distended
Neurology: Awake and AO x 3
Labs/Micro/Reports
Lab Data
02/11/25 09:12
02/11/25 09:12
Microbiology
02/09/25 11:10 Nasal Swab Respiratory Syncytial Virus Ag - Final
Negative for Respiratory Syncytial Virus.
A false negative result may be obtained with a specimen
collected early in the acute phase. If symptoms persist, a
new specimen should be tested.
[2025-02-11 11:15] VITALS: BP 119/69
[2025-02-11] MEDS: DUONEB 3 ML INH (11:32)
[2025-02-11] MEDS: DECADRON 2 MG IV (12:33)
--- NOTE | 2025-02-11 14:00 | CM ---
CM following re: discharge planning.
Reviewed pt's chart, met with pt.
Pt lives with and a son in a 2SH, has 3 supportive children. 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
D/C plan: home no needs. to transport at discharge.
CM will follow with discharge plan updates as hospitalization progresses
[2025-02-11 15:04] VITALS: BP 118/65
== END 2025-02-11 16:13 | disposition home or self-care (01) | DRG 202 ==
LOC: 2 NORTH 14:22
PROVIDERS: ADMITTING PHYSICIAN Hospitalist; ATTENDING PHYSICIAN Hospitalist; CONSULT PHYSICIAN Internal Medicine Critical Care Medicine; EMERGENCY PHYSICIAN Emergency Medicine; FAMILY PHYSICIAN Family Medicine
DX: J45.901 Unspecified asthma with (acute) exacerbation (principal); K50.90 Crohn's disease, unspecified, without complications; Z11.52 Encounter for screening for COVID-19; K21.9 Gastro-esophageal reflux disease without esophagitis; K44.9 Diaphragmatic hernia without obstruction or gangrene; N30.10 Interstitial cystitis (chronic) without hematuria; Z79.52 Long term (current) use of systemic steroids; R00.0 Tachycardia, unspecified; E78.00 Pure hypercholesterolemia, unspecified; J06.9 Acute upper respiratory infection, unspecified; E66.9 Obesity, unspecified; Z68.37 Body mass index [BMI] 37.0-37.9, adult
CPT/HCPCS: 71046; 80053; 83735; 85025; 85379; 87807; 87811; 90656; 93005; 94640; 96365; 96375; 99285; G0008